=== PATIENT | female | born 1960 | race Caucasian/White ===

== ENCOUNTER → 2016-11-19 | Outpatient (CLI) | payer OTHER ==
[~2016-11-19] MED LIST: ACTIGALL300 MG PO; CALCIUM +D & M1 EACH PO; HYDROCODON-ACE1 EAC7 PO; LUNESTA3 MG PO; OMEPRAZOLE20 MG PO; SYNTHROID88 MCG PO; TORADOL30 MG/ML IM; ZOFRAN ODT4 MG PO
== END | disposition home or self-care (01) ==
DX: M17.12 Unilateral primary osteoarthritis, left knee (principal); R26.2 Difficulty in walking, not elsewhere classified; M25.562 Pain in left knee; M25.662 Stiffness of left knee, not elsewhere classified; M62.81 Muscle weakness (generalized); Z74.1 Need for assistance with personal care
CPT/HCPCS: 97161 GP; 97165 GO; 97530 GP; 97537 GO